=== PATIENT | male | born 1975 | race Caucasian/White ===

== ENCOUNTER 2022-01-11 12:23 | Inpatient (IN) | payer BC ==
[~2022-01-11] VITALS: Ht 190.5 cm; Wt 127.0 kg
[~2022-01-11 12:23] MED LIST: ASPI-992 PO; IBUP200C5 PO
--- NOTE | 2022-01-11 12:33 | NUR ---
ESRTABLISHED IV LINE 18G , BLOOD SAMPLE OBTAINED SENT TO LAB
--- NOTE | 2022-01-11 12:39 | NUR ---
AT BEDSIDE FOR EVAL
[2022-01-11] MEDS ORDERED: CHLORDIAZEPOXIDE HCL 25 MG CAPSULE ONE (12:42)
[2022-01-11] MEDS ORDERED: LORAZEPAM INJ 2 MG/ML VIAL ONE (12:43)
[2022-01-11] MEDS ORDERED: CHLORDIAZEPOXIDE HCL 25 MG CAPSULE PO ONE ×2 (13:00)
[2022-01-11] MEDS ORDERED: LORAZEPAM INJ 2 MG/ML VIAL IVP ONE (13:00)
[2022-01-11] MEDS ORDERED: IV NS 0.9% 500 ML BAG IV ONE (13:00)
[2022-01-11] MEDS ORDERED: ALLO100T PO (13:08)
[2022-01-11] MEDS ORDERED: COLC0.6T67 PO (13:08)
[2022-01-11 13:09] LABS: BASOPHILS # (AUTO) 0.1 K/uL (0.0-0.2); BASOPHILS % (AUTO) 0.7 % (0.0-2.0); EOSINOPHILS % (AUTO) 1.4 % (0.0-6.0); HEMATOCRIT 48 % (39-51); HEMOGLOBIN 16.3 g/dL (13.5-17.5); LYMPHOCYTES # (AUTO) 1.9 K/uL (0.8-4.8); LYMPHOCYTES % (AUTO) 23.6 % (20.0-44.0); MEAN CORPUSCULAR HGB CONC 34 g/dl (31.0-36.0); MEAN CORPUSCULAR VOLUME 94 fL (80-96); MONOCYTES # (AUTO) 0.7 K/uL (0.1-1.30); MONOCYTES % (AUTO) 8.7 % (2.0-12.0); NEUTROPHILS # (AUTO) 5.3 K/uL (1.8-8.9); NEUTROPHILS % (AUTO) 65.6 % (43.0-81.0); PLATELET COUNT (AUTO) 265 K/uL (150-450); RED BLOOD CELL COUNT(AUTO) 5.06 MIL/uL (4.5-6.0); WHITE BLOOD COUNT (AUTO) 8.1 K/uL (4.3-11.0)
[2022-01-11 13:15] LABS: CALCIUM, SERUM 9.5 mg/dL (8.5-10.1); CARBON DIOXIDE 25 mmol/L (21-32); CHLORIDE 98 mmol/L (98-107); GLUCOSE 109 mg/dL (74-106); POTASSIUM 3.9 mmol/L (3.5-5.1); SODIUM SERUM 136 mmol/L (136-145); UREA NITROGEN, BLOOD 12 mg/dL (7-18)
[2022-01-11 13:20] LABS: ALANINE AMINOTRANSFERASE 195 U/L (12-78); ALBUMIN 4.4 g/dL (3.4-5.0); ALKALINE PHOSPHATASE 79 U/L (46-116); ASPARTATE AMINOTRANSFERASE 140 U/L (15-37); BILIRUBIN,DIRECT 0.3 mg/dL (0.0-0.2); BILIRUBIN,TOTAL 0.9 mg/dL (0.2-1.0); TOTAL PROTEIN, SERUM 7.9 g/dL (6.4-8.2)
[2022-01-11 13:24] LABS: ACETAMINOPHEN < 10 ug/ml (10-30); ALCOHOL, BLOOD < 3 mg/dL (0-0)
[2022-01-11] MEDS ORDERED: FOLIC ACID 1 MG TABLET PO ONE (14:30)
[2022-01-11] MEDS ORDERED: THIAMINE HCL 100 MG TABLET PO ONE (14:30)
[2022-01-11] MEDS ORDERED: Magnesium 1GM/D5W 100ML PREMIX 100 ML IV ONE ×2 (14:39→15:44)
[2022-01-11] MEDS ORDERED: FOLIC ACID 1 MG TABLET ONE (14:39)
[2022-01-11] MEDS ORDERED: THIAMINE HCL 100 MG TABLET ONE (14:40)
[2022-01-11 14:42] LABS: BILIRUBIN,URINE NEGATIVE (NEGATIVE); COLOR,URINE YELLOW (YELLOW); LEUKOCYTE ESTERASE ,URINE NEGATIVE (NEGATIVE); NITRITE, URINE NEGATIVE (NEGATIVE); PROTEIN,URINE NEGATIVE (NEGATIVE); UGLUCOSE NEGATIVE (NEGATIVE); UROBILINOGEN,URINE 0.2 EU/dL (0.2)
[2022-01-11] MEDS: Magnesium 1GM/D5W 100ML PREMIX 100 ML IV SCH ×2 (14:48→15:30)
[2022-01-11 15:18] LABS: BACTERIA,URINE None seen /HPF (None Seen); SQUAMOUS EPITHELIAL CELL,UR None Seen /HPF (None Seen); WBC,URINE NONE SEEN /HPF (0-3)
--- NOTE | 2022-01-11 16:24 | NUR ---
REPORT GIVEN TO CATHERINE MATA FOR [facility]
--- NOTE | 2022-01-11 16:40 | NUR ---
IV MAGNESIUM STILL INFUSING ENDORSED TO CATHERINE RN FLOOR NURSE
--- NOTE | 2022-01-11 17:02 | NUR ---
MOVED TO ASSIGNED ROOM SAFELY
[2022-01-11] MEDS ORDERED: IV LR 500 ML IV ONE (17:30)
[2022-01-11] MEDS ORDERED: ACETAMINOPHEN 325 MG TABLET PO PRN (17:30)
[2022-01-11] MEDS ORDERED: Z GUARD REMEDY 4 OZ OINT TP PRN (17:30)
[2022-01-11] MEDS ORDERED: ONDANSETRON HCL/PF 4 MG/2 ML VIAL IVP PRN (17:30)
[2022-01-11] MEDS: LORAZEPAM INJ 2 MG/ML VIAL IV PRN ×3 (17:57→22:58)
[2022-01-11 18:00] VITALS: BP 169/99
--- NOTE | 2022-01-11 18:00 | NUR ---
PROOF CLERK NOTE ADMITTED THIS 46 Y/O MALE PATIENT FROM [facility]. @1645 VIA GURNEY, ACCOMPANIED BY [facility] STAFF. WITH ADMITTING DIAGNOSIS OF ETOH WITHDRAWAL. PATIENT IS AWAKE, A/O X4, VERBALLY RESPONSIVE, NOT IN ACUTE DISTRESS. STABLE ON ROOM AIR, SPO2 @98%, NO SOB NOTED, BREATHING EVEN AND UNLABORED. NOTED WITH RIGHT AC #18 PERIPHERAL LINE, INTACT AND PATENT. VITAL SIGNS TAKEN, STABLE AND RECORDED, PATIENT AFEBRILE. PLACED PATIENT ON KINESEOLOGIST SHOWING ST, HR @108. ORIENTED PATIENT TO STAFF AND ROOM. SAFETY MEASURE IN PLACE. BED IN LOWEST AND LOCKED POSITION, SIDE RAILS UP, CALL LIGHT PLACED WITHIN EASY REACH. WILL CONTINUE TO MONITOR PATIENT.
--- NOTE | 2022-01-11 19:08 | NUR ---
Closing RN Note Patient is resting comfortably after eating 100% of regular diet dinner meal. No signs of any acute distress at the moment. On telemetry with cardiac rhythm of sinus tachycardia at 116 bpm HR. Patient is alert and oriented x 4 and cooperative. Verbally responsive. Has peripheral IV catheter, # 18 gauge to right AC and patent. IV fluid of LR @125 mLs infusing through PIV. Patient educated about safety protocols including fall risk precautions, seizure precautions, hand washing. Seizure precaution in place.
--- NOTE | 2022-01-11 19:30 | NUR ---
FLAME ANNEALING MACHINE OPERATOR OPENING NOTE RECEIVED PT LYING IN BED, AWAKE AT THIS TIME. A/O X4, COOPERATIVE, ABLE TO MAKE NEEDS KNOWN. ON RA WITH NO S/S OF SOB OR LABORED BREATHING. ON TELE MONITOR READING SINUS TACHYCARDIA, HR 110. DENIES ANY PAIN OR DISCOMFORT. PT AMBULATORY WITH NO ASSIST. IV ACCESS RAC #18G RUNNING LR @ 125 ML/HR, PATENT AND INTACT. SAFETY AND SEIZURE PRECAUTIONS IN PLACE: BED LOCKED AND IN LOW POSITION, PADDED SIDE RAILS UP X3, SUCTION SETUP READY, CALL LIGHT WITHIN REACH. WILL CONTINUE TO MONITOR AND ASSIST.
[2022-01-11 20:00] VITALS: BP_SYST 115; BP_SYST 146; BP_DIAS 104; BP_DIAS 70
[2022-01-12] VITALS: BP 158/95
[2022-01-12] MEDS: LORAZEPAM INJ 2 MG/ML VIAL IV PRN ×5 (01:04→10:37)
[2022-01-12 04:00] VITALS: BP 150/96
[2022-01-12 05:54] LABS: BASOPHILS % (AUTO) 0.7 % (0.0-2.0); EOSINOPHILS % (AUTO) 3.2 % (0.0-6.0); HEMATOCRIT 41 % (39-51); HEMOGLOBIN 13.9 g/dL (13.5-17.5); LYMPHOCYTES # (AUTO) 1.8 K/uL (0.8-4.8); LYMPHOCYTES % (AUTO) 34.4 % (20.0-44.0); MEAN CORPUSCULAR HGB CONC 34 g/dl (31.0-36.0); MEAN CORPUSCULAR VOLUME 95 fL (80-96); MONOCYTES # (AUTO) 0.5 K/uL (0.1-1.30); MONOCYTES % (AUTO) 10.3 % (2.0-12.0); NEUTROPHILS # (AUTO) 2.7 K/uL (1.8-8.9); NEUTROPHILS % (AUTO) 51.4 % (43.0-81.0); PLATELET COUNT (AUTO) 194 K/uL (150-450); RED BLOOD CELL COUNT(AUTO) 4.29 MIL/uL (4.5-6.0); WHITE BLOOD COUNT (AUTO) 5.2 K/uL (4.3-11.0)
[2022-01-12 06:23] LABS: ALBUMIN 3.4 g/dL (3.4-5.0); CREATININE 0.9 mg/dL (0.6-1.3); MAGNESIUM 2.5 mg/dL (1.8-2.4); PHOSPHORUS 4.8 mg/dL (2.5-4.9); POTASSIUM 3.6 mmol/L (3.5-5.1); TOTAL PROTEIN, SERUM 6.2 g/dL (6.4-8.2)
[2022-01-12 06:47] LABS: THYROID STIMULATING HORMONE 2.949 uIU/mL (0.358-3.74)
--- NOTE | 2022-01-12 07:15 | NUR ---
PHYSICIAN GENERAL PRACTICE CLOSING NOTE PT SLEEPING IN BED AT THIS TIME. A/O X4, COOPERATIVE, ABLE TO MAKE NEEDS KNOWN. STABLE ON RA WITH NO S/S OF SOB OR LABORED BREATHING. ON TELE MONITOR READING SINUS TACHYCARDIA, HR 111. DENIES ANY PAIN OR DISCOMFORT. PT AMBULATORY WITH NO ASSIST. IV ACCESS RAC #18G RUNNING LR @ 125 ML/HR, PATENT AND INTACT. ATIVAN 2MG ADMINISTERED Q2HR PER MD ORDER. ALL CARE PROVIDED AND ADMINISTERED MEDICATIONS TOLERATED WELL. SAFETY AND SEIZURE PRECAUTIONS MAINTAINED: BED LOCKED AND IN LOW POSITION, PADDED SIDE RAILS UP X3, SUCTION SETUP READY, CALL LIGHT WITHIN REACH. WILL ENDORSE [facility] TO FILTER MACHINE OPERATOR NURSE.
--- NOTE | 2022-01-12 07:35 | NUR ---
ENGINEERING MODEL MAKER OPENING NOTE RECEIVED PT LYING IN BED WATCHING TV, A/O X4, COOPERATIVE, ABLE TO MAKE NEEDS KNOWN. ON RA SATURATING AT 96% WITHOUT ANY NOTED S/S OF SOB OR LABORED BREATHING. NOT ON ANY APPARENT DISTRESS. TELEMONITORING SHOWS SINUS TACHYCARDIA AT HR 106. DENIES ANY PAIN OR DISCOMFORT. IV ACCESS ON RAC G#18 RUNNING LR @ 125 ML/HR, PATENT AND INTACT, NO SIGNS OF INFILTRATION. SAFETY AND SEIZURE PRECAUTIONS IN PLACE: BED LOCKED AND IN LOWEST POSITION, PADDED SIDE RAILS UP X3, SUCTION SETUP READY, CALL LIGHT AND TRAY WITHIN REACH. WILL CONTINUE TO MONITOR DURING MY SHIFT.
[2022-01-12 08:00] VITALS: BP 153/107
[2022-01-12] MEDS ORDERED: ALLOPURINOL 100 MG TABLET PO SCH (09:00)
[2022-01-12] MEDS ORDERED: THIAMINE HCL 100 MG TABLET PO SCH (09:00)
[2022-01-12] MEDS ORDERED: COLCHICINE 0.6 MG TABLET PO SCH (09:00)
[2022-01-12] MEDS ORDERED: CHLO25CA22 PO ×2 (12:15→12:21)
[2022-01-12] MEDS ORDERED: THIA500T PO (12:15)
--- NOTE | 2022-01-12 13:03 | NUR ---
[employer] SALES REPRESENTATIVE NOTES PT DISCHARGED TO HOME IN STABLE CONDITION. PT AOX4, ABLE TO MAKE NEEDS KNOWN. ON ROOM AIR, SATURATING WELL AT SPO2 98%. NO SOB NOTED NOT IN ANY SIGNS OF RESPIRATORY DISTRESS. LAST TELE READING WAS SINUS TACHYCARDIA AT 108 BPM. VITAL SIGNS TAKEN, STABLE, AND RECORDED. PT'S SKIN IS INTACT. PATIENT DENIES PAIN OR DISCOMFORT AT THIS TIME. ALL BELONGINGS ARE ACCOUNTED FOR AND SIGNED. IV ACCESS IN RAC G#18 HAS BEEN REMOVED WITH NO ACTIVE BLEEDING NOTED, DRY PRESSURE DRESSING APPLIED AT SITE. PT LEFT THE UNIT AT 1250 ON FOOT, REFUSED WHEEL CHAIR. ACCOMPANIED TO THE LOBBY SAFELY HE WAITS FOR HIS FRIEND, ENDORSED TO THE GUARD ON DUTY. MD AND CHARGE NURSE AWARE OF THE DC.
== END 2022-01-12 12:55 | disposition home or self-care (01) | DRG 897 ==
LOC: ER 12:25 → TELE 16:21
PROVIDERS: ADMIT Nurse Practitioner Acute Care; ATTEND Nurse Practitioner Acute Care
DX: F10.239 Alcohol dependence with withdrawal, unspecified (principal); M10.9 Gout, unspecified; I10 Essential (primary) hypertension; Z20.822 Contact with and (suspected) exposure to COVID-19; Y90.0 Blood alcohol level of less than 20 mg/100 ml; F41.9 Anxiety disorder, unspecified; Z79.899 Other long term (current) drug therapy; Z87.891 Personal history of nicotine dependence; K70.9 Alcoholic liver disease, unspecified; R74.01 Elevation of levels of liver transaminase levels
CPT/HCPCS: 36415; 80048-TC; 80053-TC; 80061-TC; 80076-TC; 81001; 83540-TC; 83735-TC; 84100-TC; 84443-TC; 85025-TC; 85610-TC; 87081-TC; C9803; G0378; G0480; J2060; J3475; J3490; J7120